=== PATIENT | female | born 1945 | race Caucasian/White ===

== ENCOUNTER 2016-12-19 13:32 | Inpatient (IN) ==
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
[2016-12-19 17:12] LABS: Basophils # 0.1 10*3/uL (0.0-0.2); Basophils % 0.7 % (0.0-0.8); Eosinophils # 0.2 10*3/uL (0.0-0.87); Eosinophils % 1.2 % (0.00-10.9); Hematocrit 33.8 VOL% (35.7-47.0); Hemoglobin 11.7 GM/DL (12.0-16.0); Immature Granulocytes % 0.6 %; Immature Granulocytes Absolute 0.11 #; Lymphocytes # 1.2 10*3/uL (1.4-4.0); Lymphocytes % 6.1 % (21.3-54.2); Mean Corpuscular HGB Conc 34.6 GM/DL (32-36); Mean Corpuscular Hemoglobin 32 PG (27-34); Mean Corpuscular Volume 92.9 FL (87-102); Mean Platelet Volume 10.8 FL (9.6-12.0); Monocytes # 0.9 10*3/uL (0.11-0.8); Monocytes % 4.6 % (1.7-12.7); Neutrophils # 17.2 10*3/uL (1.4-7.4); Neutrophils % 86.8 % (38.7-73.9); Platelet Count 275 T/CUMM (130-400); Red Blood Count 3.64 MC/CUMM (3.8-5.5); Red Cell Distribution Width 13.8 % (9.3-17.3); White Blood Count 19.8 T/CUMM (4-12)
[2016-12-19 17:24] LABS: PT Patient Result 10.8 SECS; Partial Thromboplastin Time 22.6 SECS (0-40)
[2016-12-19 17:52] LABS: Alanine Aminotransferase 26 U/L (13-56); Albumin 4.5 G/DL (3.4-5.0); Alkaline Phosphatase 101 U/L (45-117); Aspartate Amino Transferase 23 U/L (0-37); Bilirubin,Total < 0.39 MG/DL (0.2-1.0); Calcium 10.1 MG/DL (8.5-10.1); Total Protein 8.1 G/DL (6.4-8.3)
[2016-12-19 17:53] LABS: Amylase 82 U/L (25-115); Blood Urea Nitrogen 53 MG/DL (7-18); Glucose 121 MG/DL (74-106); Osmolality,Calculated 287.8 MOS/KG (273-304); Potassium 4.6 MMOL/L (3.5-5.1); Sodium 137 MMOL/L (136-145)
[2016-12-19 18:11] LABS: Apearance,Urine CLEAR (Clear); Bilirubin,Urine Negative (Negative); Blood, Urine Negative (Negative); Glucose,Urine (UA) Negative (Negative); Hyaline Casts,Urine 5 /LPF (0-3); Ketones,Urine Negative (Negative); Mucus,Urine Occasional /LPF (Occasional); Nitrite,Urine Negative (Negative); Protein,Urine Negative; RBC,Urine 1 /HPF (0-4); Squamous Epithelial Cell,Urine Occasional /HPF (0-10); Urine Color Yellow (Yellow); Urine Specific Gravity 1.008 (1.001-1.035); Urine Urobilinogen < 2.0 EU/DL (0.2-1.0); WBC,Urine <1 /HPF (0-6)
[2016-12-19 18:18] LABS: Barbiturates Screen,Urine Negative (Negative); Benzodiazepines Screen,Urine Negative (Negative); Cannabinoid Screen,Urine Negative (Negative); Opiate Screen,Urine Negative (Negative); Phencyclidine Screen,Urine Negative (Negative)
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
[2016-12-19] MEDS ORDERED: ONDANSETRON 4 MG/2 ML VIAL IV PRN (20:10)
[2016-12-19] MEDS ORDERED: ACETAMINOPHEN 325 MG TABLET PO PRN (20:10)
[2016-12-19] MEDS ORDERED: MORPHINE 2 MG/1 ML SYRINGE IV PRN (20:10)
[2016-12-19] MEDS: SODIUM CHLORIDE 0.9% 1,000 ML IV SCH (20:59)
[2016-12-19] MEDS: CARVEDILOL 12.5 MG TABLET PO SCH (21:59)
[2016-12-20 06:32] LABS: Basophils # 0.1 10*3/uL (0.0-0.2); Basophils % 0.4 % (0.0-0.8); Eosinophils # 0.1 10*3/uL (0.0-0.87); Eosinophils % 0.5 % (0.00-10.9); Hematocrit 26.9 VOL% (35.7-47.0); Immature Granulocytes % 0.4 %; Immature Granulocytes Absolute 0.05 #; Lymphocytes # 1.3 10*3/uL (1.4-4.0); Lymphocytes % 10.9 % (21.3-54.2); Mean Corpuscular HGB Conc 34.9 GM/DL (32-36); Mean Corpuscular Hemoglobin 32 PG (27-34); Mean Corpuscular Volume 92.1 FL (87-102); Mean Platelet Volume 11.1 FL (9.6-12.0); Monocytes # 0.8 10*3/uL (0.11-0.8); Monocytes % 7.2 % (1.7-12.7); Neutrophils # 9.2 10*3/uL (1.4-7.4); Neutrophils % 80.6 % (38.7-73.9); Platelet Count 221 T/CUMM (130-400); Red Blood Count 2.92 MC/CUMM (3.8-5.5); Red Cell Distribution Width 13.7 % (9.3-17.3)
[2016-12-20 06:34] LABS: Hemoglobin 9.4 GM/DL (12.0-16.0); White Blood Count 11.5 T/CUMM (4-12)
[2016-12-20] MEDS: SODIUM CHLORIDE 0.9% 1,000 ML IV SCH ×4 (06:39→22:56)
[2016-12-20 07:05] LABS: Albumin 3.5 G/DL (3.4-5.0); Osmolality,Calculated 284.8 MOS/KG (273-304); Potassium 4.2 MMOL/L (3.5-5.1); Total Protein 6.5 G/DL (6.4-8.3)
[2016-12-20 07:51] LABS: Apearance,Urine CLEAR (Clear); Bacteria,Urine Occasional /HPF (Few); Bilirubin,Urine Negative (Negative); Blood, Urine Negative (Negative); Glucose,Urine (UA) Negative (Negative); Ketones,Urine Negative (Negative); Mucus,Urine Occasional /LPF (Occasional); Nitrite,Urine Negative (Negative); Protein,Urine Negative; RBC,Urine 2 /HPF (0-4); Squamous Epithelial Cell,Urine Occasional /HPF (0-10); Urine Color Straw (Yellow); Urine Urobilinogen < 2.0 EU/DL (0.2-1.0); WBC,Urine 22 /HPF (0-6)
--- NOTE | 2016-12-20 07:52 | Orthopedic Progress Note ---
Orthopedics - Subjective Interval history: Rested comfortably no new complaints. Discussed plan for right foot. N.p.o. Exam - Constitutional Vitals: Period Temp Pulse Resp BP Sys/Matthews Pulse Ox Last 24 Hr 98.3 F-100.1 F 78-106 16-20 107-162/62-100 94-100 Results - Labs CBC & BMP: 12/20/16 05:59 12/20/16 05:59
[2016-12-20] MEDS: LEVOTHYROXINE 25 MCG TABLET PO SCH (07:56)
[2016-12-20] MEDS: FUROSEMIDE 40 MG TABLET PO SCH (08:50)
[2016-12-20] MEDS: MONTELUKAST 10 MG TABLET PO SCH (08:50)
[2016-12-20] MEDS: ALLOPURINOL 100 MG TABLET PO SCH (08:50)
[2016-12-20] MEDS: POTASSIUM CHLORIDE 10 MEQ TABLET PO SCH (08:50)
[2016-12-20] MEDS: FAMOTIDINE 20 MG TABLET PO SCH (08:50)
[2016-12-20] MEDS: PANTOPRAZOLE 40 MG TABLET PO SCH (08:50)
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
--- NOTE | 2016-12-20 09:23 | Physician Query Form ---
CLICK EDIT DOCUMENT TO SELECT QUERY ANSWER --> OK --> SIGN Mckenna Nguyen RN, CCDS Certified Clinical Svp Of Digital W) [phone] (f) [phone] [email or web address] PROVIDERS: Make your selection(s) from the choices in EACH section by typing an "x" and enter comments in the comment section. Please use your independent medical judgment in providing your response. This request does not imply that any particular answer is desired or expected. CLINICAL INDICATORS: (Providers should not edit this section) The medical record indicates that the patient was admitted with a left pelvic ramus fracture, "likely has some element of dehydration", "Creatinine is elevated at 2", Creatinine 1.60 on the 5th, GFR of 22 on the 4th that has increased to 30 on the 5th and "will plan for rehydration." NO IVF's noted: Clarify which of the following most accurately represents the patient's renal status: ( ) Acute kidney injury (non-traumatic) ( ) Acute renal failure ( ) Acute renal failure with underlying Chronic Kidney Disease (CKD) - please provide stage below ( ) Acute renal failure with pathological renal lesion ( ) Acute renal failure with necrosis ( ) tubular ( ) medullary ( ) cortical ( ) CKD - please provide stage below ( ) End Stage Renal Disease ( ) Acute interstitial nephritis ( ) Hepatorenal syndrome ( x) Other, please specify: likely acute kidney injury associated with volume depletion; possible underlying CKD but baseline creatinine unknown ( ) Clinically unable to determine Chronic Kidney Disease Stages Source: National Kidney Disease Foundation ( ) Stage I (eGFR > or = 90) ( ) Stage II (eGFR 60 - 89) ( ) Stage III (eGFR 30 - 59) ( ) Stage IV (eGFR 15 - 29) ( ) Stage V (eGFR < 15 or dialysis) COMMENTS: PLEASE ALSO DOCUMENT RESPONSE IN PROGRESS NOTES AND/OR DISCHARGE SUMMARY Use of terms such as suspected, likely, or probable (associated with a specific diagnosis that is being evaluated, monitored, or treated as if it exists) are acceptable and can be restated in the discharge summary if not ruled out. MTDD
[2016-12-20] MEDS: amLODIPine 5 MG TABLET PO SCH (10:04)
[2016-12-20] MEDS: CARVEDILOL 12.5 MG TABLET PO SCH ×2 (10:05→20:28)
[2016-12-20] MEDS: LISINOPRIL/HCTZ 20-12.5 MG TABLET PO SCH (10:07)
--- NOTE | 2016-12-20 10:08 | XRay Report ---
XR chest 1V Indication: Shortness of breath Comparison: 02 September 2012 Findings: The heart and mediastinum are normal in size and configuration. The pulmonary vascularity is normal in caliber. No lung infiltrates, effusions, pneumothorax or other abnormality is demonstrated. Impression: No acute cardiopulmonary disease. PROCEDURE INTERPRETED AT [facility] [place] DEPARTMENT OF RADIOLOGY Final Report Signed by: Dr. Mehrdad Farris
--- NOTE | 2016-12-20 10:27 | Order Completion Report ---
See report scanned to EMR
--- NOTE | 2016-12-20 11:40 | Anesthesia Post-Op ---
Anesthesia Post OP - Post Ansesthetic Evaluation Patient seen in post op: Yes Resp: within normal limits CV: within normal limits Mental: within normal limits Temp: within normal limits [id number]: within normal limits Nausea and Vomiting: within normal limits Pain: within normal limits
[2016-12-20] MEDS ORDERED: PROPOFOL 200 MG/20 ML VIAL IV ONE (11:43)
[2016-12-20] MEDS ORDERED: SEVOFLURANE 1 UNIT/15 MINUTE INH ONE (11:43)
[2016-12-20] MEDS ORDERED: MIDAZOLAM 2 MG/2 ML VIAL ONE (11:44)
[2016-12-20] MEDS ORDERED: ONDANSETRON 4 MG/2 ML VIAL ONE (11:44)
[2016-12-20] MEDS ORDERED: fentaNYL 100 MCG/2 ML VIAL ONE (11:44)
[2016-12-20] MEDS ORDERED: MORPHINE 2 MG/1 ML SYRINGE IV PRN (11:55)
--- NOTE | 2016-12-20 12:52 | Orthopedic Progress Note ---
Orthopedics - Subjective Interval history: Comfortable postop discussed with family going to need swing bed or rehab placement most likely. Exam - Constitutional Vitals: Period Temp Pulse Resp BP Sys/Matthews Pulse Ox Last 24 Hr 97.9 F-100.1 F 71-106 16-20 107-162/57-100 94-100 Results - Labs CBC & BMP: 12/20/16 05:59 12/20/16 05:59 Quality Measures - VTE Contraindication to Pharmacological VTE Prophylaxis: High Risk of Bleeding
--- NOTE | 2016-12-20 13:28 | XRay Report ---
Exam: XR foot 3V RT Exam date: 12/20/2016, December 20, 2016 Indication: Fracture Pain, Comparison: Previous day at 0248 hours Findings: Interoperative fluoroscopic imaging was performed during fixation of metatarsal fractures. 5 images in the anterior oblique and lateral position were submitted for interpretation. Fluoroscopy time recorded at 33 seconds. Cumulative radiation dose of 0.62237 mGym2. Submitted images demonstrate percutaneous pinning of the first and second metatarsal base fractures. Additional fractures are unchanged in position and alignment.. Submitted images were satisfactory for the intended purpose. No radiographic soft tissue abnormalities. Impression: Expected postoperative appearance of first and second metatarsal fixation PROCEDURE INTERPRETED AT [facility] DEPARTMENT OF RADIOLOGY Final Report Signed by: Lesa Carrasco MD
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
[2016-12-20] MEDS: MORPHINE 2 MG/1 ML SYRINGE IV PRN (20:30)
[2016-12-21] MEDS: SODIUM CHLORIDE 0.9% 1,000 ML IV SCH ×4 (02:17→22:28)
[2016-12-21 04:00] LABS: Basophils # 0.1 10*3/uL (0.0-0.2); Basophils % 0.7 % (0.0-0.8); Eosinophils # 0.4 10*3/uL (0.0-0.87); Eosinophils % 4.3 % (0.00-10.9); Hematocrit 23.2 VOL% (35.7-47.0); Hemoglobin 7.8 GM/DL (12.0-16.0); Immature Granulocytes % 0.4 %; Immature Granulocytes Absolute 0.03 #; Lymphocytes # 1.8 10*3/uL (1.4-4.0); Lymphocytes % 21.9 % (21.3-54.2); Mean Corpuscular HGB Conc 33.6 GM/DL (32-36); Mean Corpuscular Hemoglobin 32 PG (27-34); Mean Corpuscular Volume 94.3 FL (87-102); Monocytes # 0.9 10*3/uL (0.11-0.8); Monocytes % 10.5 % (1.7-12.7); Neutrophils # 5.2 10*3/uL (1.4-7.4); Neutrophils % 62.2 % (38.7-73.9); Platelet Count 164 T/CUMM (130-400); Red Blood Count 2.46 MC/CUMM (3.8-5.5); Red Cell Distribution Width 13.8 % (9.3-17.3); White Blood Count 8.4 T/CUMM (4-12)
[2016-12-21 04:35] LABS: Osmolality,Calculated 279.7 MOS/KG (273-304); Potassium 4.3 MMOL/L (3.5-5.1)
[2016-12-21] MEDS: MORPHINE 2 MG/1 ML SYRINGE IV PRN (06:49)
[2016-12-21] MEDS: LEVOTHYROXINE 25 MCG TABLET PO SCH (06:52)
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
--- NOTE | 2016-12-21 08:32 | Orthopedic Progress Note ---
Orthopedics - Subjective Interval history: Pain control good no new complaints will start PT today will need swing bed placement Exam - Constitutional Vitals: Period Temp Pulse Resp BP Sys/Matthews Pulse Ox Last 24 Hr 97.9 F-99.7 F 71-96 16-20 109-157/52-83 95-100 Results - Labs CBC & BMP: 12/21/16 03:12 12/21/16 03:12 Quality Measures - VTE Contraindication to Pharmacological VTE Prophylaxis: High Risk of Bleeding
[2016-12-21] MEDS: POTASSIUM CHLORIDE 10 MEQ TABLET PO SCH (09:35)
[2016-12-21] MEDS: FAMOTIDINE 20 MG TABLET PO SCH (09:35)
[2016-12-21] MEDS: FUROSEMIDE 40 MG TABLET PO SCH (09:35)
[2016-12-21] MEDS: amLODIPine 5 MG TABLET PO SCH (09:35)
[2016-12-21] MEDS: PANTOPRAZOLE 40 MG TABLET PO SCH (09:35)
[2016-12-21] MEDS: CARVEDILOL 12.5 MG TABLET PO SCH ×2 (09:35→20:06)
[2016-12-21] MEDS: MONTELUKAST 10 MG TABLET PO SCH (09:36)
[2016-12-21] MEDS: ALLOPURINOL 100 MG TABLET PO SCH (09:36)
[2016-12-21] MEDS: BACITRACIN OINT 0.9 GM PACK TOP SCH (16:15)
[2016-12-22 05:08] LABS: Calcium 8.5 MG/DL (8.5-10.1); Osmolality,Calculated 275.8 MOS/KG (273-304); Potassium 4.4 MMOL/L (3.5-5.1)
[2016-12-22] MEDS: LEVOTHYROXINE 25 MCG TABLET PO SCH (06:28)
[2016-12-22 06:48] LABS: Basophils # 0.1 10*3/uL (0.0-0.2); Basophils % 0.5 % (0.0-0.8); Eosinophils # 0.4 10*3/uL (0.0-0.87); Eosinophils % 3.4 % (0.00-10.9); Hematocrit 23.3 VOL% (35.7-47.0); Immature Granulocytes % 0.5 %; Immature Granulocytes Absolute 0.07 #; Lymphocytes # 1.2 10*3/uL (1.4-4.0); Lymphocytes % 9.4 % (21.3-54.2); Mean Corpuscular HGB Conc 34.3 GM/DL (32-36); Mean Corpuscular Hemoglobin 32 PG (27-34); Mean Corpuscular Volume 93.2 FL (87-102); Mean Platelet Volume 10.5 FL (9.6-12.0); Monocytes # 0.8 10*3/uL (0.11-0.8); Monocytes % 6.1 % (1.7-12.7); Neutrophils # 10.4 10*3/uL (1.4-7.4); Neutrophils % 80.1 % (38.7-73.9); Platelet Count 168 T/CUMM (130-400); Red Cell Distribution Width 13.8 % (9.3-17.3); White Blood Count 12.9 T/CUMM (4-12)
[2016-12-22] MEDS: CARVEDILOL 12.5 MG TABLET PO SCH ×2 (09:57→20:50)
[2016-12-22] MEDS: SODIUM CHLORIDE 0.9% 1,000 ML IV SCH ×3 (09:57→20:52)
[2016-12-22] MEDS: FUROSEMIDE 40 MG TABLET PO SCH (09:58)
[2016-12-22] MEDS: PANTOPRAZOLE 40 MG TABLET PO SCH (09:58)
[2016-12-22] MEDS: LISINOPRIL/HCTZ 20-12.5 MG TABLET PO SCH (09:58)
[2016-12-22] MEDS: FAMOTIDINE 20 MG TABLET PO SCH (09:58)
[2016-12-22] MEDS: amLODIPine 5 MG TABLET PO SCH (09:58)
[2016-12-22] MEDS: POTASSIUM CHLORIDE 10 MEQ TABLET PO SCH (09:58)
[2016-12-22] MEDS: MONTELUKAST 10 MG TABLET PO SCH (09:59)
[2016-12-22] MEDS: ALLOPURINOL 100 MG TABLET PO SCH (09:59)
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
[2016-12-22] MEDS: BACITRACIN OINT 0.9 GM PACK TOP SCH (11:25)
[2016-12-23] MEDS: SODIUM CHLORIDE 0.9% 1,000 ML IV SCH ×2 (04:55→09:01)
[2016-12-23] MEDS: LEVOTHYROXINE 25 MCG TABLET PO SCH (06:06)
[2016-12-23] MEDS: POTASSIUM CHLORIDE 10 MEQ TABLET PO SCH (08:40)
[2016-12-23] MEDS: CARVEDILOL 12.5 MG TABLET PO SCH ×2 (08:40→20:15)
[2016-12-23] MEDS: FUROSEMIDE 40 MG TABLET PO SCH (08:40)
[2016-12-23] MEDS: PANTOPRAZOLE 40 MG TABLET PO SCH (08:41)
[2016-12-23] MEDS: amLODIPine 5 MG TABLET PO SCH (08:41)
[2016-12-23] MEDS: MONTELUKAST 10 MG TABLET PO SCH (08:41)
[2016-12-23] MEDS: FAMOTIDINE 20 MG TABLET PO SCH (08:41)
[2016-12-23] MEDS: ALLOPURINOL 100 MG TABLET PO SCH (08:41)
[2016-12-23] MEDS: LISINOPRIL/HCTZ 20-12.5 MG TABLET PO SCH (08:41)
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
[2016-12-23] MEDS: ENOXAPARIN 40 MG/0.4 ML SYRINGE SUBCUT SCH (10:26)
[2016-12-23] MEDS: BACITRACIN OINT 0.9 GM PACK TOP SCH (16:21)
[2016-12-24] MEDS: LEVOTHYROXINE 25 MCG TABLET PO SCH (06:50)
[2016-12-24] MEDS: FAMOTIDINE 20 MG TABLET PO SCH (08:30)
[2016-12-24] MEDS: LISINOPRIL/HCTZ 20-12.5 MG TABLET PO SCH (08:30)
[2016-12-24] MEDS: FUROSEMIDE 40 MG TABLET PO SCH (08:31)
[2016-12-24] MEDS: ALLOPURINOL 100 MG TABLET PO SCH (08:31)
[2016-12-24] MEDS: POTASSIUM CHLORIDE 10 MEQ TABLET PO SCH (08:31)
[2016-12-24] MEDS: amLODIPine 5 MG TABLET PO SCH (08:31)
[2016-12-24] MEDS: CARVEDILOL 12.5 MG TABLET PO SCH ×2 (08:31→21:54)
[2016-12-24] MEDS: PANTOPRAZOLE 40 MG TABLET PO SCH (08:31)
[2016-12-24] MEDS: MONTELUKAST 10 MG TABLET PO SCH (08:31)
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
[2016-12-24] MEDS: ENOXAPARIN 40 MG/0.4 ML SYRINGE SUBCUT SCH (09:22)
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
[2016-12-24] MEDS: BACITRACIN OINT 0.9 GM PACK TOP SCH (10:40)
[2016-12-25] MEDS: LEVOTHYROXINE 25 MCG TABLET PO SCH (06:21)
--- NOTE | 2016-12-25 08:21 | Orthopedic Progress Note ---
Orthopedics - Subjective Interval history: Awaiting rehab placement foot better minimal swelling may remove fracture boot while in the bed but apply when up with PT continue nonweightbearing on the right pivot weightbearing on the left Exam - Constitutional Vitals: Period Temp Pulse Resp BP Sys/Matthews Pulse Ox Last 24 Hr 97.5 F-98.7 F 83-94 16-18 124-146/56-75 90-99 Results - Labs CBC & BMP: 12/22/16 06:36 12/22/16 03:39 Quality Measures - VTE Contraindication to Pharmacological VTE Prophylaxis: High Risk of Bleeding Specialty Discharge - Follow Up or Referrals Follow up with: Kolton Mendoza MD [Physician] - (As needed) Maldonado Avalos Jr., MD [Physician] - (Per orthopedics recommendation)
[2016-12-25] MEDS: FUROSEMIDE 40 MG TABLET PO SCH (08:59)
[2016-12-25] MEDS: POTASSIUM CHLORIDE 10 MEQ TABLET PO SCH (08:59)
[2016-12-25] MEDS: PANTOPRAZOLE 40 MG TABLET PO SCH (08:59)
[2016-12-25] MEDS: LISINOPRIL/HCTZ 20-12.5 MG TABLET PO SCH (09:00)
[2016-12-25] MEDS: ALLOPURINOL 100 MG TABLET PO SCH (09:00)
[2016-12-25] MEDS: MONTELUKAST 10 MG TABLET PO SCH (09:00)
[2016-12-25] MEDS: amLODIPine 5 MG TABLET PO SCH (09:00)
[2016-12-25] MEDS: CARVEDILOL 12.5 MG TABLET PO SCH ×2 (09:00→20:44)
[2016-12-25] MEDS: FAMOTIDINE 20 MG TABLET PO SCH (09:00)
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
[2016-12-25] MEDS: BACITRACIN OINT 0.9 GM PACK TOP SCH (09:26)
[2016-12-25] MEDS: ENOXAPARIN 40 MG/0.4 ML SYRINGE SUBCUT SCH (09:35)
[2016-12-26] MEDS: LEVOTHYROXINE 25 MCG TABLET PO SCH (06:19)
[2016-12-26] MEDS: POTASSIUM CHLORIDE 10 MEQ TABLET PO SCH (09:18)
[2016-12-26] MEDS: CARVEDILOL 12.5 MG TABLET PO SCH ×2 (09:18→21:39)
[2016-12-26] MEDS: FUROSEMIDE 40 MG TABLET PO SCH (09:18)
[2016-12-26] MEDS: LISINOPRIL/HCTZ 20-12.5 MG TABLET PO SCH (09:19)
[2016-12-26] MEDS: FAMOTIDINE 20 MG TABLET PO SCH (09:19)
[2016-12-26] MEDS: amLODIPine 5 MG TABLET PO SCH (09:19)
[2016-12-26] MEDS: MONTELUKAST 10 MG TABLET PO SCH (09:20)
[2016-12-26] MEDS: PANTOPRAZOLE 40 MG TABLET PO SCH (09:20)
[2016-12-26] MEDS: ALLOPURINOL 100 MG TABLET PO SCH (09:20)
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
[2016-12-26] MEDS: ENOXAPARIN 40 MG/0.4 ML SYRINGE SUBCUT SCH (10:16)
[2016-12-26] MEDS: BACITRACIN OINT 0.9 GM PACK TOP SCH (11:23)
[2016-12-27 05:30] LABS: Basophils % 0.3 % (0.0-0.8); Eosinophils # 0.8 10*3/uL (0.0-0.87); Eosinophils % 8.2 % (0.00-10.9); Hematocrit 22.9 VOL% (35.7-47.0); Hemoglobin 7.8 GM/DL (12.0-16.0); Immature Granulocytes % 1.1 %; Lymphocytes # 1.9 10*3/uL (1.4-4.0); Lymphocytes % 20.2 % (21.3-54.2); Mean Corpuscular HGB Conc 34.1 GM/DL (32-36); Mean Corpuscular Hemoglobin 32 PG (27-34); Mean Corpuscular Volume 93.1 FL (87-102); Mean Platelet Volume 9.6 FL (9.6-12.0); Monocytes # 0.8 10*3/uL (0.11-0.8); Monocytes % 8.5 % (1.7-12.7); NRBC # 0.03 10*3/uL; Neutrophils # 5.6 10*3/uL (1.4-7.4); Neutrophils % 61.7 % (38.7-73.9); Platelet Count 356 T/CUMM (130-400); Red Blood Count 2.46 MC/CUMM (3.8-5.5); Red Cell Distribution Width 13.8 % (9.3-17.3); White Blood Count 9.2 T/CUMM (4-12)
[2016-12-27 05:57] LABS: Osmolality,Calculated 283.7 MOS/KG (273-304); Potassium 3.8 MMOL/L (3.5-5.1)
[2016-12-27] MEDS: LEVOTHYROXINE 25 MCG TABLET PO SCH (06:02)
[2016-12-27] MEDS: FUROSEMIDE 40 MG TABLET PO SCH (09:05)
[2016-12-27] MEDS: POTASSIUM CHLORIDE 10 MEQ TABLET PO SCH (09:05)
[2016-12-27] MEDS: CARVEDILOL 12.5 MG TABLET PO SCH (09:05)
[2016-12-27] MEDS: LISINOPRIL/HCTZ 20-12.5 MG TABLET PO SCH (09:06)
[2016-12-27] MEDS: MONTELUKAST 10 MG TABLET PO SCH (09:06)
[2016-12-27] MEDS: amLODIPine 5 MG TABLET PO SCH (09:06)
[2016-12-27] MEDS: FAMOTIDINE 20 MG TABLET PO SCH (09:06)
[2016-12-27] MEDS: ALLOPURINOL 100 MG TABLET PO SCH (09:06)
[2016-12-27] MEDS: PANTOPRAZOLE 40 MG TABLET PO SCH (09:06)
[2016-12-27] MEDS: ENOXAPARIN 40 MG/0.4 ML SYRINGE SUBCUT SCH (10:08)
[2016-12-27] MEDS: BACITRACIN OINT 0.9 GM PACK TOP SCH (10:37)
[2016-12-27 11:22] VITALS: BP 135/59
== END 2016-12-27 12:00 | DRG 504 ==
LOC: N.ED 13:32 → N.EDINP 18:53 → N.3E 19:41
PROVIDERS: ADMIT Surgery; ATTEND Surgery